=== PATIENT | male | born 1965 | race Caucasian/White ===

== ENCOUNTER 2019-05-26 08:42 | Emergency (ER) | payer OTHER ==
[~2019-05-26] VITALS: Ht 185.4 cm; Wt 129.5 kg
[~2019-05-26 08:42] MED LIST: CLARITIN 10 MG10 MG PO
[2019-05-26] MEDS ORDERED: FLUTICASONE PRO16 GM NASAL (09:03)
[2019-05-26 09:39] LABS: ALBUMIN 4.1 g/dL (3.4-5.0); ANION GAP 9.5 mmol/L (8-16); BILIRUBIN - TOTAL 0.76 mg/dL (0.2-1.3); CALCIUM 9.7 mg/dL (8.5-10.1); CARBON DIOXIDE 31.1 mmol/L (21.0-32.0); CREATININE - SERUM 1.6 mg/dL (0.6-1.3); POTASSIUM - SERUM 4.6 mmol/L (3.5-5.1); PROTEIN - SERUM 8.7 g/dL (6.4-8.2)
[2019-05-26 09:44] LABS: BASOPHILS 0.4 % (0-2); EOSINOPHILS 1.7 % (0-7); HEMOGLOBIN 17.3 g/dL (13.5-17.5); IMMATURE GRANULOCYTES 0.5 % (0-5); LYMPHOCYTES 32.1 % (15-50); MCH 32.1 pg (26.0-34.0); MCHC 36.8 g/dL (31.0-37.0); MCV 87.2 fL (80.0-100.0); MEAN PLATELET VOLUME 10.1 fL (7.4-10.4); NEUTROPHILS 58.3 % (40-80); RBC 5.39 10x6/uL (4.20-6.10); RDW 12.2 % (11.5-14.5); WBC 8.4 10x3/uL (4.8-10.8)
[2019-05-26 09:46] LABS: PLATELET COUNT 134 10x3/uL (130-400)
[2019-05-26 10:21] LABS: APPEARANCE CLEAR (CLEAR); BILIRUBIN NEGATIVE (NEGATIVE); COLOR YELLOW (YELLOW); GLUCOSE NEGATIVE (NEGATIVE); KETONE MODERATE mg/dL (NEGATIVE); NITRITE NEGATIVE (NEGATIVE); PROTEIN TRACE mg/dL (NEGATIVE); SPECIFIC GRAVITY 1.015 (1.005-1.020); UROBILINOGEN NORMAL (NORMAL)
[2019-05-26 10:23] LABS: BACTERIA FEW /hpf (NONE SEEN); EPITHELIAL CELLS 0-5 /hpf (0-5); MUCUS <1+ /lpf (NONE SEEN); RED CELLS - URINE 0-5 /hpf (0-5); WHITE CELLS - URINE RARE /hpf (0-5)
== END 2019-05-26 13:23 | disposition home or self-care (01) ==
LOC: D.ER 08:42
PROVIDERS: Family Medicine
DX: N20.1 Calculus of ureter (principal); E86.0 Dehydration